=== PATIENT | male | born 1965 | race Caucasian/White ===

== ENCOUNTER 2017-12-17 14:22 | Emergency (ER) | payer OTHER ==
[2017-12-17] MEDS ORDERED: MAGNESIUM SULFATE 2 GM, MULTIVITAMINS 10 ML, THIAMINE 100 MG, FOLIC ACID 1 MG in SOD CH... IV (15:36)
[2017-12-17 15:54] LABS: ADD MAN DIFF? NO
[2017-12-17 15:55] LABS: BASOPHIL # 0.1 10^3/ul (0.0-0.1); BASOPHILS % 1.2 % (0.0-2.0); EOSINOPHILS # 0.1 10^3/ul (0.0-0.5); EOSINOPHILS % 1.9 % (0.0-7.0); HEMATOCRIT 42.3 % (42.0-52.0); HEMOGLOBIN 14.7 g/dl (14.0-18.0); LYMPHOCYTES # 2.3 10^3/ul (0.8-2.9); LYMPHOCYTES % 33.7 % (15.0-51.0); MEAN CORPUSCULAR HEMOGLOBIN 32.2 pg (29.0-33.0); MEAN CORPUSCULAR HGB CONC 34.8 g/dl (32.0-37.0); MEAN CORPUSCULAR VOLUME 92.8 fl (82.0-101.0); MEAN PLATELET VOLUME 9.1 fl (7.4-10.4); MONOCYTE # 0.5 10^3/ul (0.3-0.9); MONOCYTES % 7.5 % (0.0-11.0); NEUTROPHIL # 3.7 10^3/ul (1.6-7.5); NEUTROPHILS % 55.4 % (39.0-77.0); PLATELET COUNT 224 10^3/UL (140-415); RED BLOOD COUNT 4.56 10^6/ul (4.70-6.10); RED CELL DISTRIBUTION WIDTH 14.5 % (11.5-14.5)
[2017-12-17 15:55] LABS: WHITE BLOOD COUNT 6.8 10^3/ul (4.8-10.8)
[2017-12-17] MEDS: LORAZEPAM 2 MG INJ IV (16:14)
[2017-12-17 16:19] LABS: ALANINE AMINOTRANSFERASE 83 IU/L (13-69); ALBUMIN/GLOBULIN RATIO 1.11; ALKALINE PHOSPHATASE 108 IU/L (42-121); ANION GAP 15 (8-16); ASPARTATE AMINO TRANSFERASE 130 IU/L (15-46); BILIRUBIN,INDIRECT 0.3 mg/dl (0-1.1); BILIRUBIN,TOTAL 0.3 mg/dl (0.2-1.3); BLOOD UREA NITROGEN 6 mg/dl (7-20); CALCIUM 9.4 mg/dl (8.4-10.2); CARBON DIOXIDE 24 mmol/L (21-31); CHLORIDE 110 mmol/L (97-110); CREATININE 0.87 mg/dl (0.61-1.24); GLUCOSE 118 mg/dl (70-220); POTASSIUM 3.9 mmol/L (3.5-5.1); SODIUM 145 mmol/L (135-144); TOTAL PROTEIN 7.6 g/dl (6.1-8.1)
== END 2017-12-17 17:00 | disposition left against medical advice (07) ==
LOC: E/R 14:22
DX: F10.920 Alcohol use, unspecified with intoxication, uncomplicated (principal); F17.210 Nicotine dependence, cigarettes, uncomplicated; R41.82 Altered mental status, unspecified
CPT/HCPCS: 36415; 70450; 80053; 80307; 85025; 93005; 96374; 99285-25